=== PATIENT | male | born 1975 | race Two or more races ===

== ENCOUNTER 2016-09-09 09:58 | Day surgery (SDC) | payer OTHER ==
--- NOTE | 2016-09-08 14:23 | HP ---
DATE OF CLINIC: 09/02/2016 ANDRES DOMINGUEZ : 1975 PLANNED PROCEDURE: Right Shoulder Arthroscopic Debridement, Subacromial Decompression and Biceps Tenodesis DATE OF SURGERY: September 09, 2016 SURGEON: Connor Echols M.D. HISTORY OF PRESENT ILLNESS Andres Herring is a 41 year old male. * Medication list reviewed with patient allergy list reviewed with patient. This is a 41-year-old gentleman who is referred over from [facility] and was scheduled to see Dr. Mariscal but was not able to because Dr. Mariscal' change in practice. He has long standings complaints of right shoulder pain after a fall from a second story roof. He has had biceps tendon injection which given some relief. He continues to have pain now in his anterior posterior shoulder especially when he reaches forward from an extended position in the shoulder or reaches into external rotation from an internally rotated abducted position. Most of the pain is in front. He does have some pain posterior laterally over the region of his greater tuberosity. He does not have any complaints of instability. He has some weakness, but he is able to move his shoulder in every position that he wants to. It is limited his ability to do his job but he has continued to try to work. He has had physical therapy, anti-inflammatories and injections which are not giving him durable relief and he is interested in surgical intervention. After discussion and review of treatment options, both operative and non-operative, he has elected to proceed with surgery and presents today preoperatively. PAST MEDICAL AND SURGICAL HISTORY: Past medical and surgical history are reviewed with no significant changes from his previous visits. CURRENT MEDICATION * Triamcinolone Acetonide 0.1 % Cream as directed topical bid., 30 days, 0 refills PAST MEDICAL/SURGICAL HISTORY Reported: Surgical / Procedural: Cholecystectomy. SOCIAL HISTORY Behavioral: Caffeine use. Alcohol: Alcohol use. Home Environment: Lives with parents. Work: Occupation warehouse. ALLERGIES * No Known Allergies FAMILY HISTORY 1 children living REVIEW OF SYSTEMS No recent constitutional symptoms to include fevers and chills. No recent cardiovascular symptoms to include chest pain or palpitations. No recent respiratory symptoms to include shortness of breath or recent infections. PHYSICAL FINDINGS * Vitals taken 09/02/2016 09:43 am BP-Sitting L 132/90 mmHg BP Cuff Size Regular Pulse Rate-Sitting 61 bpm Pulse Rhythm Regular Respiration Rate 18 per min Height 68.5 in Weight 251 lbs Body Mass Index 37.6 kg/m2 Body Surface Area 2.26 m2 Pain Level 6 Ears, Nose, Throat: * ENT: normal. Lungs: * Clear to auscultation. Cardiovascular: Heart Rate and Rhythm: * Normal. Abdomen: * Normal. Neurological: Motor: * Dominant Hand = Right Hand. Patient is a well-developed, well-nourished male in no acute distress. They are awake, alert and conversant throughout the encounter. CARDIOVASCULAR: Intact peripheral pulses on bilateral upper extremities. No significant edema on inspection of bilateral upper extremities. NEUROLOGIC: Patient had intact coordinated composite motion of the bilateral upper extremities and sensation intact to light touch in all distributions of bilateral upper extremities. PSYCHIATRIC: Patient was oriented to person, place and time and displayed appropriate mood and affect during the encounter. SKIN: Exam of the skin on bilateral upper extremities showed no significant scars, lesions, rashes or masses. FOCUSED MUSCULOSKELETAL EXAM: The patient has no erythema, ecchymosis or swelling. He has a normal resting station of the shoulders, elbows or wrists. His right shoulder is tender to palpation over the bicipital groove as well as the posterior lateral corner of the shoulder in the region of the greater tuberosity. He has range of motion with abduction, forward flexion to 180 degrees with pain, positive impingement signs, positive biceps signs. He has no instability and has negative apprehension. He has the ability to internally rotated about to the thoracolumbar junction as he comes back in to neutral position from this internally rotated position he has quite a bit of pain anteriorly in the region of the biceps tendon. He has good strength and motion at the elbow and he is neurologically intact with normal sensation and a well perfused hand distally. TESTS * Test: CBC NO DIFF Report Date: 09/02/2016 WBC 8.4 10*3/mL RBC 4.91 10*6/uL MCH 29.3 pg MCHC 33.6 g/dL RDW 13.1 % MCV 87.2 fL PLATELET COUNT 188 10*3/mL HCT 42.8 % HGB 14.4 g/L * Test: COMPREHENSIVE METABOLIC PANEL Report Date: 09/02/2016 ALT/SGPT 43 U/L ALBUMIN 4.2 g/dL ALB/GLOB RATIO 1.3 BUN 20 mg/dL BUN/CREAT RATIO 25 High CALCIUM 9.2 mg/dL GLUCOSE 93 mg/dL CREATININE 0.8 mg/dL SODIUM 138 meq/L POTASSIUM 3.9 meq/L CHLORIDE 107 meq/L CARBON DIOXIDE 24 meq/L ANION GAP 11 meq/L TOT PROTEIN 7.4 g/dL GLOBULIN 3.2 g/dL BILI,TOTAL 0.4 mg/dL AST/SGOT 26 U/L ALK PHOSPHATASE 54 U/L GFR 107 High IMAGING X-rays show some mild AC arthrosis. No fractures or dislocations. A well reduced humeral head. MRI shows what looks like maybe a partial bursal sided partial thickness tear of his rotator cuff and some signal changes around his biceps tendon. No labral pathology identified. ASSESSMENT A 41-year-old male with right shoulder symptoms that have been calcitrant and to non-operative measures. PLAN * Impingement syndrome of right shoulder Percocet 5-325 MG TABS, 1 every 4 - 6 hours as needed, 14 days, 0 refills * Arthroscopy of the shoulder with debridement, SAD and biceps tenodesis -right CARE TEAM Cory Israel MD [facility] SURGICAL CONSENT We have discussed surgical options including right shoulder arthroscopic debridement, SAD, biceps tenodesis and non-operative management. The patient was counseled in detail regarding the diagnosis, treatment options available, prognosis of each treatment option and the potential risks and complications. The risks of surgery include, but are not limited to, anesthetic , neurovascular complications, pulmonary embolism, deep vein thrombosis, wound dehiscence, failure of any or all of the discussed procedures, infection of the joint or surrounding soft tissue, need for revision surgery, chronic pain, limitations in activities of daily living, inability to return to work, and loss of normal range of motion or functional use of the extremity. There is the possibility of failure over time that may require additional operative or non-operative treatment. The patient acknowledged that there are a number of perioperative risks not mentioned here and would still like to proceed. The patient is aware of and understands these risks, and wishes to proceed with the proposed surgical procedure and other procedures as indicated at the time of surgery. We will have the patient see their PCP for a preoperative medical risk assessment. The preoperative instructions were reviewed with the patient and all questions were answered. PB/sg
[2016-09-09] MEDS ORDERED: CEFAZOLIN SODIUM 2 GRAM PREMIX 100 ML IV PRN (10:15)
[2016-09-09] MEDS ORDERED: LACTATED RINGERS 1,000 ML ONE (10:20)
[2016-09-09] MEDS ORDERED: CEFAZOLIN SODIUM 2 GRAM PREMIX 100 ML IV ONE (10:21)
[2016-09-09] MEDS ORDERED: IV START KIT ONE (10:21)
[2016-09-09] MEDS ORDERED: NERVE BLOCK PROCEDURAL TRAY 1 EACH ONE (11:07)
[2016-09-09] MEDS ORDERED: ROPIVACAINE 0.5% 30 ML VIAL ONE (11:07)
[2016-09-09] MEDS ORDERED: MIDAZOLAM HCL 1 MG/ML 2ML VIAL ONE ×2 (11:10→11:21)
[2016-09-09] MEDS ORDERED: FENTANYL 100 MCG/2 ML VIAL ONE ×3 (11:10→15:14)
[2016-09-09] MEDS ORDERED: DEXAMETHASONE SOD PHOS 4 MG/1 ML VIAL ONE (11:20)
[2016-09-09] MEDS ORDERED: ROCURONIUM BROMIDE 10 MG/ML DOSE IV ONE (11:20)
[2016-09-09] MEDS ORDERED: PROPOFOL 20 ML IV ONE (11:20)
[2016-09-09] MEDS ORDERED: ONDANSETRON 4 MG/2ML 2 ML VIAL ONE (11:20)
[2016-09-09] MEDS ORDERED: PROMETHAZINE HCL 25 MG/ML VIAL IM PRN (13:38)
[2016-09-09] MEDS ORDERED: ATROPINE SULFATE 0.4 MG/1 ML VIAL IV PRN (13:38)
[2016-09-09] MEDS ORDERED: MEPERIDINE 25 MG/ML SYRINGE IV PRN (13:38)
[2016-09-09] MEDS ORDERED: HYDROMORPHONE HCL 1 MG/ML SYRINGE IV PRN ×2 (13:38→15:38)
[2016-09-09] MEDS ORDERED: LABETALOL HCL 5 MG/ML 20ML VIAL IV PRN (13:38)
[2016-09-09] MEDS ORDERED: ONDANSETRON 4 MG/2ML 2 ML VIAL IV PRN (13:38)
[2016-09-09] MEDS ORDERED: FENTANYL 100 MCG/2 ML VIAL IV PRN (13:38)
[2016-09-09] MEDS ORDERED: NALOXONE HCL 0.4 MG/ML VIAL IV PRN (13:38)
[2016-09-09] MEDS ORDERED: ON-Q PUMP/ROPIVACAINE 0.2% 450 ML in PREMIX BAG 1 EACH NB PRN (13:38)
[2016-09-09] MEDS ORDERED: HYDRALAZINE HCL 20 MG/1 ML VIAL IV PRN (13:38)
[2016-09-09] MEDS ORDERED: LACTATED RINGERS 1,000 ML IV SCH ×2 (13:45→15:38)
[2016-09-09] MEDS ORDERED: ON-Q PUMP/ROPIVACAINE 0.2% 450 ML ONE (14:52)
--- NOTE | 2016-09-09 14:54 | PCMBPN ---
Brief Post Op Note: Date of Procedure: 09/09/16 Start Time: 1400 Preoperative Diagnosis: 1. right shoulder biceps tendinitis and impingement Postoperative Diagnosis: 1. Same Procedure: right shoulder arthroscopy, subacromial decompression, and biceps tenodesis Surgeon: Connor Echols MD Assist: Marquita Brown Anesthesia: Benjy Bahena Findings: as above; rotator cuff intact Condition: stable to PACU Complications: none IV Fluids: 1800 mLs of LR Urine Output: 0 mLs Estimated Blood Loss: 100 mLs Tourniquet Time: none Specimens: none Implants: Arthrex proximal biceps tenodesis button Drains: none Connor Echols MD
--- NOTE | 2016-09-09 15:33 | RAD ---
Clinical Indication: Postop biceps tenodesis. Comparison: 01/28/2016. Findings: 1 views of the right shoulder. Bones: No fracture or dislocation. Hardware from biceps tenodesis is identified. Overlying bandaging does limit assessment. Joints: Unremarkable. Soft tissue: Normal. Limited evaluation of the right hemithorax: Unremarkable. Impression: Satisfactory postoperative exam..
[2016-09-09] MEDS ORDERED: OXYCODONE/ACETAMINOPHEN 5/325 MG TABLET PO PRN (15:38)
[2016-09-09] MEDS ORDERED: DIPHENHYDRAMINE HCL 50 MG/1 ML VIAL IV PRN (15:38)
[2016-09-09] MEDS ORDERED: ACETAMINOPHEN 325 MG TABLET PO PRN (15:38)
[2016-09-09] MEDS ORDERED: HYDROMORPHONE HCL 0.5 MG/0.5 ML SYRINGE IV PRN (16:05)
[2016-09-09] MEDS ORDERED: HYDROMORPHONE HCL 1 MG/ML SYRINGE ONE (16:23)
--- NOTE | 2016-09-10 09:15 | OP ---
Andres LAM : 1975 [id number] DATE OF SERVICE: September 09, 2016 PREOPERATIVE DIAGNOSES: Right shoulder biceps tendinitis and impingement. POSTOPERATIVE DIAGNOSES: Right shoulder biceps tendinitis and impingement. PROCEDURE PERFORMED: RIGHT SHOULDER ARTHROSCOPY, SUBACROMIAL DECOMPRESSION, AND BICEPS TENODESIS. SURGEON: Connor Echols M.D. SUPERVISOR FERTILIZER: Marti Andre ANESTHESIA: Amira Kraus.NThong SPECIMENS: No material was sent to the laboratory. ESTIMATED BLOOD LOSS: 100 mL. FLUIDS REPLACED: 1800 mL of crystalloid. IMPLANTS: Arthrex proximal biceps tenodesis button. TOURNIQUET TIME: None. INDICATIONS: This is a 41-year-old male with right shoulder biceps tendinitis and impingement syndrome, which has not responded well to a course of nonoperative measures. His exam and radiographic findings support the above diagnosis and he is interested in pursuing surgical intervention. DESCRIPTION OF PROCEDURE: The patient was identified in the pre-operative holding area where he was marked with an indelible marker by the operating surgeon. He underwent an interscalene block by the anesthesia providers and then was taken to the operating room where he was placed in a supine position on the operating room table. General anesthesia was induced. Perioperative antibiotics were administered. He was repositioned into an upright to beach chair position. All bony prominences were padded. He was prepped and draped in the usual sterile fashion for surgery and a final operative time out was performed and confirmed by all members of the operative team. A posterior portal was created and the 30 degree viewing arthroscope was inserted into the shoulder with the following findings: The patient had intact labral structures. He had significant injection and synovitis around his biceps tendon. His rotator cuff insertion was intact with just a bit of fraying at the margin of the rotator interval. His chondral surfaces were largely intact. An anterior portal was created and a biceps tenotomy was performed and then the camera was redirected in the subacromial space. The lateral portal was created and the combination of the RF 1, and the arthroscopic resector shaver were used to complete a subacromial bursectomy. The cuff was inspected from the side and found again to be intact. A subacromial bursectomy was completed and a partial acromioplasty was performed with a bur. The camera and instruments were then removed and an open incision was made on the anterior portion of the shoulder at the anterior axillary fold just inferior to the pec tendon. Blunt exploration took us down to the anterior portion of the humerus and the biceps tendon was withdrawn out the incision. This was whipstiched 2.5 cm from the muscle tendon junction proximally and the excess tendon was cut off. A corticotomy was created into the humerus in the region of the biceps tendon groove above the inferior border of the pec tendon and the biceps tendon button was threaded onto the sutures for the tendon and was deployed into the interosseous space. The tendon was secured in this location and appropriate tension was confirmed. The wound was copiously irrigated with sterile saline and closed with Nylon. The portal sites were closed with Nylon. A sterile dressing of Xeroform, fluffs, ABDs and Medipore tape was applied. The patient was placed into a sling. The drapes were removed. The patient was awakened from his anesthesia, extubated in the operating room and transferred to a stretcher and taken postoperatively to the postanesthesia care unit in stable condition. There were no observed intraoperative complications during this procedure. Job [id number] Cc: [employer]
== END 2016-09-09 17:30 | disposition home or self-care (01) ==
LOC: SDC 09:58
PROVIDERS: ATTEND Orthopaedic Surgery
DX: M75.21 Bicipital tendinitis, right shoulder (principal); M75.41 Impingement syndrome of right shoulder
CPT/HCPCS: 73020; 23430; J1170; J3010 ×3; J1100; J2795 ×3; A9270; J2250 ×2; J2405; J7120; A4306; J0690